=== PATIENT | female | born 1970 | race Caucasian/White ===

== ENCOUNTER → 2019-12-19 08:59 | Outpatient (CLI) | payer OTHER, SELFPAY ==
--- NOTE | ~2019-12-19 | MR_ITS ---
EXAMINATION: MR knee RT wo con DATE: 12/19/2019 10:09 INDICATION: Right knee pain TECHNIQUE: Magnetic resonance imaging (MRI) of the right knee was performed without intravenous contr ast. Sequences included coronal PD-weighted FSE, coronal PD-weighted FS FSE, sagittal T2-weighted FS E, sagittal PD-weighted FS FSE and axial PD weighted fat saturated FSE. COMPARISON: None. FINDINGS: Medial compartment: There is mild medial extrusion of the medial meniscal body without a discrete meniscal tear. Partial- thickness cartilage loss with smooth chondral surface along the medial two thirds of the medial tibia l plateau. There is mild subarticular edema along the posterior medial rim of the medial tibial plate au. Additional partial thickness cartilage loss with irregular chondral surface with superimposed ana p fissuring but without degenerative subchondral changes at the anterior to central weightbearing med ial femoral condyle. Small marginal osteophytes are present. Lateral compartment: There is a longitudinal tear extending obliquely to contact the inferior articular surface of the pos terior horn of the lateral meniscus. Increased intrasubstance signal at the lateral meniscal body whi ch does not unambiguously contact the articular surface which is equivocal for mucoid degeneration ve rsus anterior extension of the tear at the posterior horn. Partial-thickness cartilage loss with doe dral surface irregularity along both the lateral tibial plateau and along the weightbearing lateral f emoral condyle. There is a tiny central subchondral osteophyte at the posterior weightbearing lateral femoral condyle. Patellofemoral compartment: Diffuse partial thickness patellar cartilage loss most severe along the medial side of the lateral fa cet and at the apical ridge where it involves greater than 50% of the cartilage thickness. Partial-th ickness chondral ulceration and fissuring without degenerative subchondral changes at the medial and lateral trochlear and intervening trochlear groove. Small marginal osteophytes are present. Ligaments and tendons: Anterior and posterior cruciate ligaments are normal. The medial collateral ligament and fibular hermelinda ateral ligament complex are normal. The extensor mechanism is normal. The visualized medial and later al hamstring tendons as well as the iliotibial band are normal. Fluid: Small right knee joint effusion at the suprapatellar pouch. Scattered mild subcutaneous edema most pr ominent anterior to the patella and patellar tendon without discrete prepatellar bursal fluid collect ion. 17 x 12 x 9 mm osteochondral body at the posterior recess along the posterior margin of the post erior cruciate ligament. Osseous/other: Normal marrow signal. No fracture or pathologic marrow replacing process. IMPRESSION: 1. Longitudinal tear at the posterior horn of the lateral meniscus which may extend into the meniscal body. 2. Tricompartmental osteoarthritis, moderate severity at the medial compartment and mild in the later al and patellofemoral compartments with moderate to high-grade chondromalacia in all 3 compartments. 3. Likely reactive small right knee joint effusion. Reviewed, dictated and finalized at location A. IMPRESSION: 1. Longitudinal tear at the posterior horn of the lateral meniscus which may ex tend into the meniscal body. 2. Tricompartmental osteoarthritis, moderate severity at the medial compartment and mild in the lateral and patellofemoral compartments with moderate to high- grade chondromalacia in all 3 compartments. 3. Likely reactive small right knee joint effusion.
--- NOTE | ~2019-12-19 | MR_ITS ---
EXAMINATION: MR lumbar spine wo con EXAM DATE: 12/19/2019 10:14 INDICATION: Low back pain. Generalized right knee pain. TECHNIQUE: Multi-sequential, multiplanar MR images of the lumbar spine were obtained without contrast . Sagittal T1, T2, T2 fat saturation images. Axial T2 weighted images. Comparison is made to prior examination from 11/08/2018. FINDINGS: There is moderate disc disease at L4-5, mild to moderate at L3-4 and L5-S1. There is 2 mm a nterolisthesis L4 on L5, 2 mm retrolisthesis L5 on S1. The conus medullaris terminates at the L1/2 le jose miguel and has normal signal intensity and morphology. There are some degenerative endplate signal braden es L3-S1. There are no suspicious focal vertebral signal abnormalities identified. Mild lumbar levos coliosis. Level by level evaluation: T12-L1: Disc does not extend beyond the endplate margin. Facet arthropathy: Mild. Neural foraminal stenosis: No stenosis. Central canal stenosis: No stenosis. L1-L2: Disc does not extend beyond the endplate margin. Facet arthropathy: Mild. Neural foraminal stenosis: No stenosis. Central canal stenosis: No stenosis. L2-L3: There is a minimal diffuse disc bulge. Facet arthropathy: Mild. Neural foraminal stenosis: Mild right. Central canal stenosis: No stenosis. L3-L4: There is a mild diffuse disc bulge. Facet arthropathy: Severe. Neural foraminal stenosis: Mild right, mild to moderate left. Central canal stenosis: Mild to moderate. L4-L5: There is a mild to moderate diffuse disc bulge. Facet arthropathy: Moderate. Neural foraminal stenosis: Mild to moderate right, mild left. Central canal stenosis: Mild to moderate. L5-S1: There is a moderate diffuse disc bulge. Facet arthropathy: Mild to moderate. Neural foraminal stenosis: Moderate bilateral. Central canal stenosis: Mild to moderate. Compared to last year, difficult to appreciate any significant interval change. IMPRESSION: 1. Moderate lower lumbar spondylosis. Reviewed, dictated and finalized at location G.
== END ==
PROVIDERS: PCP Internal Medicine; Visit Provider Nurse Practitioner Family
DX: M54.17 Radiculopathy, lumbosacral region (principal); M54.6 Pain in thoracic spine; M25.561 Pain in right knee; M47.816 Spondylosis without myelopathy or radiculopathy, lumbar region; S83.281A Other tear of lateral meniscus, current injury, right knee, initial encounter; M17.11 Unilateral primary osteoarthritis, right knee; M94.261 Chondromalacia, right knee; M25.461 Effusion, right knee
CPT/HCPCS: 72148; 73721

== ENCOUNTER → 2020-10-21 10:44 | Outpatient (CLI) | payer OTHER, SELFPAY ==
--- NOTE | ~2020-10-21 | XR_ITS ---
EXAMINATION: XR sacroiliac joints min 3V EXAM DATE: 10/21/2020 11:09 INDICATION: Sacrococcygeal disorders, not elsewhere classified. Pt c/o left sided posterior pain, oc casionally radiates down left leg x several years, no trauma. TECHNIQUE: Frontal, bilateral oblique projections of the sacroiliac joints. There is no prior study for comparison. FINDINGS: Evidence of moderate disc disease L4-5 and L5-S1. There is mild symmetric bilateral sacroi liac and hip joint primary osteoarthritis. Sacrum, sacroiliac joints, sacral arcuate lines are intact . The soft tissue is unremarkable. IMPRESSION: 1. Moderate lower lumbar spondylosis. 2. Mild hip, sacroiliac osteoarthritis. Reviewed, dictated and finalized at location A.
== END ==
PROVIDERS: PCP Internal Medicine; Visit Provider Nurse Practitioner Family
DX: M53.3 Sacrococcygeal disorders, not elsewhere classified (principal); M47.816 Spondylosis without myelopathy or radiculopathy, lumbar region; M16.0 Bilateral primary osteoarthritis of hip; M47.898 Other spondylosis, sacral and sacrococcygeal region
CPT/HCPCS: 72202

== ENCOUNTER 2021-05-19 01:31 | Day surgery (SDC) | payer OTHER, SELFPAY ==
[2021-05-05 13:28] VITALS: BMI 52.1
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
[2021-05-19 06:42] VITALS: BP 172/70; PULSE 61; RESP 17; TEMP 36.6; O2SAT 97; BMI 51.5
[2021-05-19] MEDS: LACTATED RINGERS 1,000 ML 150 ML IV CONT (07:00)
[2021-05-19 07:10] LABS: Glucose Point of Care 127 mg/dl (65-105)
--- NOTE | 2021-05-19 07:20 | PM.HPGS ---
History of Present Illness History of Present Illness Consent: Risks, benefits, and alternatives have been discussed and questions answered. Patient agrees to proceed with procedure. Chief complaint: neoplasm screening Narrative: Marie Gonzalez is a 50 year old female here for first screening colonoscopy Review of Systems Constitutional: Constitutional: Denies headache(s) and Denies weakness Eyes: Eyes: Denies blurry vision ENT: Reports Normal hearing present, Denies headache(s) and Denies neck pain Cardiovascular: Cardiovascular: Denies chest pain and Denies dyspnea Respiratory: Respiratory: Denies dyspnea Gastrointestinal: Gastrointestinal: Reports no additional gastrointestinal complaints Genitourinary: Genitourinary: Denies dysuria Musculoskeletal: Musculoskeletal: Denies neck pain Integumentary/Breasts: Skin/Breast: Denies dry skin Neurologic: Reports Normal hearing present, Denies headache(s) and Denies weakness Psychiatric: Psychiatric: Denies anxiety Endocrine: Endocrine: Denies change in body appearance Hematologic/Lymphatic: Hematologic/Lymphatic: Denies easy bleeding Allergic/Immunologic: Allergic/Immunologic: Denies urticaria PMFSH Past Medical History Medical History (Updated 05/19/21 @ 07:20 by Jerel Uriostegui MD) Colon cancer screening Social History Social History Years smoked: 20 Smoking status: Former smoker Tobacco type: cigarettes Living arrangements: with family Spiritual care concerns: No Meds Home Medications and Allergies Home Medications Medication Instructions Recorded Confirmed Type baclofen 10 mg PO TID 05/05/21 05/19/21 History brexpiprazole [Rexulti] 1 mg PO DAILY 05/05/21 05/19/21 History bupropion HCl 150 mg PO DAILY 05/05/21 05/19/21 History bupropion HCl 300 mg PO DAILY 05/05/21 05/19/21 History carbamazepine 1,200 mg PO HS 05/05/21 05/19/21 History cetirizine 10 mg PO DAILY 05/05/21 05/19/21 History citalopram 40 mg PO DAILY 05/05/21 05/19/21 History dulaglutide [Trulicity] 1.5 mg SUBCUT WEEKLY 05/05/21 05/19/21 History ezetimibe 10 mg PO DAILY 05/05/21 05/19/21 History fenofibrate 160 mg PO DAILY 05/05/21 05/19/21 History hydroxyzine HCl 25 mg PO BID PRN 05/05/21 05/19/21 History insulin lispro protamin-lispro 70 unit SUBCUT BID 05/05/21 05/19/21 History [Humalog Mix 75-25 KwedwinPen] metoprolol succinate 25 mg PO DAILY 05/05/21 05/19/21 History omeprazole 20 mg PO DAILY 05/05/21 05/19/21 History oxybutynin chloride 10 mg PO DAILY 05/05/21 05/19/21 History oxycodone 5 mg PO BID PRN 05/05/21 05/19/21 History pravastatin 80 mg PO DAILY 05/05/21 05/19/21 History topiramate 100 mg PO DAILY 05/05/21 05/19/21 History Allergies Allergy/AdvReac Type Severity Reaction Status Date / Time adhesive tape AdvReac Rash Verified 05/19/21 06:41 Vital Signs Vital Signs - 24 hr 05/19/21 06:42 Temperature 97.9 F Pulse Rate 61 Respiratory Rate 17 Blood Pressure 172/70 H Pulse Oximetry 97 Exam Const: General: comfortable and no acute distress HENMT: General nose exam: Normal nares present Eyes: General: appearance normal, both eyes and all related structures Neck: Neck: no JVD Resp: Auscultation: clear to auscultation bilaterally Cardio: Rate: regular rate Rhythm: regular rhythm GI: Inspection: non-distended GI Palp: Yes Soft to palpation Skin: General skin exam: normal color Neuro: General: gait normal Speech: normal speech Extrem: General: normal to inspection Psych: Mental Status: mental status grossly normal Assessment and Plan Assessment and plan (1) Colon cancer screening: Code(s): Z12.11 - Encounter for screening for malignant neoplasm of colon Status: Acute Assessment and Plan: colonoscopy
--- NOTE | 2021-05-19 07:24 | P.PNAN_ITS ---
Anes - Initial Pre Proc Eval Procedure: Operation Date: 05/19/21 07:30 Proposed Procedures p Screening Colonoscopy - Jerel Uriostegui MD Date/Time: 05/19/21 07:24 Surgeon: Jerel Uriostegui MD Pre Op Diagnosis: neoplasm screening Patient Data Age: 50 Gender: F Height: 1.7 m Weight: 149.1 kg Last Vital Signs Temp 97.9 F 05/19/21 06:42 Pulse 61 05/19/21 06:42 Resp 17 05/19/21 06:42 BP 172/70 H 05/19/21 06:42 Pulse Ox 97 05/19/21 06:42 Allergies Allergy/AdvReac Type Severity Reaction Status Date / Time adhesive tape AdvReac Rash Verified 05/19/21 06:41 Home Medications Medication Instructions Recorded Confirmed Type baclofen 10 mg PO TID 05/05/21 05/19/21 History brexpiprazole [Rexulti] 1 mg PO DAILY 05/05/21 05/19/21 History bupropion HCl 150 mg PO DAILY 05/05/21 05/19/21 History bupropion HCl 300 mg PO DAILY 05/05/21 05/19/21 History carbamazepine 1,200 mg PO HS 05/05/21 05/19/21 History cetirizine 10 mg PO DAILY 05/05/21 05/19/21 History citalopram 40 mg PO DAILY 05/05/21 05/19/21 History dulaglutide [Trulicity] 1.5 mg SUBCUT WEEKLY 05/05/21 05/19/21 History ezetimibe 10 mg PO DAILY 05/05/21 05/19/21 History fenofibrate 160 mg PO DAILY 05/05/21 05/19/21 History hydroxyzine HCl 25 mg PO BID PRN 05/05/21 05/19/21 History insulin lispro protamin-lispro 70 unit SUBCUT BID 05/05/21 05/19/21 History [Humalog Mix 75-25 KwikPen] metoprolol succinate 25 mg PO DAILY 05/05/21 05/19/21 History omeprazole 20 mg PO DAILY 05/05/21 05/19/21 History oxybutynin chloride 10 mg PO DAILY 05/05/21 05/19/21 History oxycodone 5 mg PO BID PRN 05/05/21 05/19/21 History pravastatin 80 mg PO DAILY 05/05/21 05/19/21 History topiramate 100 mg PO DAILY 05/05/21 05/19/21 History Laboratory Tests 05/19/21 06:59 POC Capillary Glucose 127 mg/dl H mg/dl (65-105) Patient hx anesthesia problems: none Family hx anesthesia problems: none Results Review: All pre-operative results and documents have been reviewed as part of the pre-operative evaluation. [facility] Past Medical History Medical History (Updated 05/19/21 @ 07:20 by Jerel Uriostegui MD) Colon cancer screening Social History Social History Years smoked: 20 Smoking status: Former smoker Tobacco type: cigarettes Living arrangements: with family Spiritual care concerns: No Anes - Eval Final PreProcedure Day of Procedure 05/19/21 07:24 Patient weight: super morbidly obese Heart: regular rate and rhythm Lungs: clear to auscultation Airway: Mallampati scale class IV Neurological: alert and oriented Last oral intake: >/= 8 hours ASA classification: IV Emergent: no Anesthetic plan: proceed Anesthesia type and monitoring: general GIVS and standard monitoring Results Review: All pre-operative results and documents have been reviewed as part of the pre-operative evaluation. Informed Consent: The patient's anesthetic plan and its attendant risks and benefits were discussed with the patient/family/POA. Questions were solicited and answers provided to the satisfaction of the patient/family/POA.
[2021-05-19 07:46] VITALS: BP 130/39; PULSE 61; RESP 20; O2SAT 96
[2021-05-19 07:56] VITALS: BP 124/37; PULSE 57; RESP 23; O2SAT 97
[2021-05-19 07:59] LABS: Glucose Point of Care 140 mg/dl (65-105)
[2021-05-19 08:06] VITALS: BP 141/39; PULSE 55; RESP 22; O2SAT 96
--- NOTE | 2021-05-19 08:16 | SUR.PHASEII ---
DR WRIGHT MADE AWARE OF B/P, NO NEW ORDERS
== END 2021-05-19 08:21 | disposition home or self-care (01) ==
PROVIDERS: PCP Internal Medicine; Visit Provider Internal Medicine Gastroenterology
PROC: 0DJD8ZZ Inspection of Lower Intestinal Tract, Via Natural or Artificial Opening Endoscopic (ICD-10-PCS; CPT 45378; principal; 2021-05-19 07:30)
DX: Z12.11 Encounter for screening for malignant neoplasm of colon (principal); D12.3 Benign neoplasm of transverse colon; K64.8 Other hemorrhoids; Z79.4 Long term (current) use of insulin; Z87.891 Personal history of nicotine dependence; E66.01 Morbid (severe) obesity due to excess calories; Z68.43 Body mass index [BMI] 50.0-59.9, adult
CPT/HCPCS: 45385; 82948; 88305; J2704; J7120

== ENCOUNTER → 2021-08-13 09:27 | Outpatient (CLI) | payer OTHER, SELFPAY ==
--- NOTE | ~2021-08-13 | US_ITS ---
EXAMINATION: US right upper quadrant DATE: 08/13/2021 09:47 INDICATION: Right upper quadrant pain TECHNIQUE: Multiple grayscale and Doppler ultrasound images of the abdomen were obtained. COMPARISON: None available FINDINGS: The head and body of the pancreas are normal. The pancreatic tail is obscured by bowel gas. The liver demonstrates increased echogenicity, heterogenous echotexture, and decreased through trans mission. No surface nodularity. Normal hepatopetal flow in the main portal vein. The gallbladder is n ormal with no abnormal wall thickening, pericholecystic fluid or stones. The normal common bile duct measures 4 mm. There was no sonographic Tamayo sign. IMPRESSION: 1. Diffuse hepatic steatosis. Reviewed, dictated and finalized at location A.
== END ==
PROVIDERS: PCP Internal Medicine; Visit Provider Internal Medicine
DX: R10.11 Right upper quadrant pain (principal); K76.0 Fatty (change of) liver, not elsewhere classified
CPT/HCPCS: 76705

== ENCOUNTER → 2021-10-09 12:05 | Outpatient (CLI) | payer OTHER, SELFPAY ==
--- NOTE | ~2021-10-09 | MM_ITS ---
EXAMINATION: MM screening olivia BI w sandee HISTORY: Screening TECHNIQUE: Craniocaudal and mediolateral oblique 3-D tomosynthesis images were obtained and synthetic 2-D images were generated. CAD analysis was submitted and interpreted. COMPARISON: No prior mammogram is available for comparison at this institution. BREAST PARENCHYMAL COMPOSITION: There are scattered areas of fibroglandular density. FINDINGS: There is no evidence of suspicious mass, calcification, or architectural distortion to sugg est malignancy in either breast. There has been no suspicious interval change. IMPRESSION: 1. No mammographic evidence of malignancy. 2. Recommend routine screening mammography in one year. BI-RADS Category 1: Negative Reviewed, dictated and finalized at location A.
== END ==
PROVIDERS: PCP Internal Medicine; Visit Provider Internal Medicine
DX: Z12.31 Encounter for screening mammogram for malignant neoplasm of breast (principal)
CPT/HCPCS: 77063; 77067

== ENCOUNTER → 2022-11-17 14:12 | Outpatient (CLI) | payer OTHER, SELFPAY ==
--- NOTE | ~2022-11-17 | XR_ITS ---
EXAM: XR shoulder LT min 2V DATE: 11/17/2022 16:02 HISTORY: Pain in left shoulder . COMPARISON: None available. FINDINGS: Normal mineralization. No fracture or dislocation. No lytic or blastic lesion. Joint space s are maintained. No erosion or periosteal change. Soft tissues within normal limits. IMPRESSION: Unremarkable left shoulder radiograph findings. Reviewed, dictated and finalized at location K.
--- NOTE | ~2022-11-17 | XR_ITS ---
EXAM: XR_[id number]_CR, XR_KNEE1-2VLT_CR DATE: 11/17/2022 16:02 HISTORY: Patellofemoral disorders, right/left knee . COMPARISON: None available. FINDINGS: Normal mineralization. No fracture or dislocation. No lytic or blastic lesion. Moderate me dial and lateral joint space narrowing bilaterally. Tricompartmental osteophytosis, moderate in the b ilateral medial and lateral compartments. Spaces are maintained. No erosion or periosteal change. Sof t tissues within normal limits. IMPRESSION: Bilateral tricompartmental knee osteoarthritis, moderate in the medial and lateral compar tments. Reviewed, dictated and finalized at location K. IMPRESSION: Bilateral tricompartmental knee osteoarthritis, moderate in the med ial and lateral compartments.
--- NOTE | ~2022-11-17 | MM_ITS ---
EXAMINATION: MM screening olivia BI w sandee HISTORY: Screening TECHNIQUE: Craniocaudal and mediolateral oblique 3-D tomosynthesis images were obtained and synthetic 2-D images were generated. CAD analysis was submitted and interpreted. COMPARISON: 10/09/2021 BREAST PARENCHYMAL COMPOSITION: There are scattered areas of fibroglandular density. FINDINGS: There is no evidence of suspicious mass, calcification, or architectural distortion to sugg est malignancy in either breast. There has been no suspicious interval change. IMPRESSION: 1. No mammographic evidence of malignancy. 2. Recommend routine screening mammography in one year. BI-RADS Category 1: Negative Reviewed, dictated and finalized at location A.
== END ==
PROVIDERS: PCP Internal Medicine; Visit Provider Internal Medicine
DX: Z12.31 Encounter for screening mammogram for malignant neoplasm of breast (principal); M17.0 Bilateral primary osteoarthritis of knee; M25.512 Pain in left shoulder
CPT/HCPCS: 73030; 73560; 77063; 77067

== ENCOUNTER → 2023-03-22 13:54 | Outpatient (CLI) | payer OTHER, SELFPAY ==
--- NOTE | ~2023-03-22 | MR_ITS ---
EXAMINATION: MR shoulder LT wo con DATE: 03/22/2023 14:39 INDICATION: Left rotator cuff tendinitis TECHNIQUE: Magnetic resonance imaging (MRI) of the left shoulder was performed without intravenous co ntrast. Sequences included axial PD-weighted FS FSE, coronal oblique PD-weighted FS FSE, coronal obli que T2-weighted FS FSE, sagittal PD-weighted FS FSE, and sagittal T1-weighted SE. COMPARISON: None. FINDINGS: Coracoacromial arch: The acromion undersurface is curved in morphology (type II). The coracoacromial ligament is normal. M ild acromioclavicular osteoarthritis. Rotator cuff: Mild supraspinatus tendinopathy with small mild partial-thickness tear along the superior facet footp late of the greater tuberosity which measures approximately 3 mm AP and 5 mm medial to lateral. The t ear involves the deeper aspect of the tendon likely with at least some involvement of the articular s urface. No evident bursal surface involvement. The infraspinatus and teres minor tendons are normal. Mild subscapularis tendinopathy without tear. Normal rotator cuff muscle bulk and signal. Biceps tendon, glenoid labrum and glenohumeral cartilage: There is moderate tendinopathy without discrete tear of the intra-articular portion of the long head biceps tendon. There is a tear at the posterosuperior glenoid labrum beginning at the 12:00 position and extending posteriorly to the 10:00 position. There is deep chondral ulceration along the posterio r superior glenoid with mild subarticular cystlike changes along the posterior and posterior superior rim of the glenoid. Fluid: Physiologic amount of fluid in the glenohumeral joint and biceps tendon sheath. No loose osteochondr al bodies. Mild increased fluid signal in the subacromial/subdeltoid bursa consistent with minimal bu rsitis. Bones: No fracture or pathologic marrow replacing process. Additional mild cystic change at the greater tube rosity. There is thickening of the glenohumeral joint capsule at the axillary recess and intermediate signal intensity thickened soft tissue at the rotator cuff interval replacing the normal T1 hyperint ense fat signal. Both findings can be seen in the setting of adhesive capsulitis which is a clinical diagnosis. IMPRESSION: 1. Mild subscapularis and supraspinatus tendinopathy with small mild partial-thickness tear along the superior facet footplate of the supraspinatus tendon, potentially involving the articular surface. 2. Mild glenohumeral osteoarthritis with moderate to high-grade chondromalacia and adjacent labral te ar at the posterosuperior glenoid. 3. Moderate tendinopathy of the intra-articular long head biceps tendon without discrete tear. 4. Findings suggestive of adhesive capsulitis which is ultimately a clinical diagnosis. Reviewed, dictated and finalized at location A. R REGULATOR IMPRESSION: 1. Mild subscapularis and supraspinatus tendinopathy with small mild partial-th ickness tear along the superior facet footplate of the supraspinatus tendon, po tentially involving the articular surface. 2. Mild glenohumeral osteoarthritis with moderate to high-grade chondromalacia and adjacent labral tear at the posterosuperior glenoid. 3. Moderate tendinopathy of the intra-articular long head biceps tendon without discrete tear. 4. Findings suggestive of adhesive capsulitis which is ultimately a clinical di agnosis.
== END ==
DX: M19.012 Primary osteoarthritis, left shoulder (principal); M94.212 Chondromalacia, left shoulder; S43.432A Superior glenoid labrum lesion of left shoulder, initial encounter; M75.22 Bicipital tendinitis, left shoulder; M67.814 Other specified disorders of tendon, left shoulder
CPT/HCPCS: 73221

== ENCOUNTER → 2023-04-29 11:22 | Outpatient (CLI) | payer OTHER, SELFPAY ==
--- NOTE | ~2023-04-29 | XR_ITS ---
Left foot Technique: AP, oblique, and lateral views were obtained. Clinical History: Pain Findings: No acute fracture or dislocation is seen. Osseous alignment is anatomic. Joint spaces are p reserved without erosive or degenerative change. Soft tissues are unremarkable. Impression: Unremarkable left foot radiographs. Reviewed, dictated and finalized at location . TY ADVISOR Impression: Unremarkable left foot radiographs.
--- NOTE | ~2023-04-29 | XR_ITS ---
Right foot Technique: AP, oblique, and lateral views were obtained. Clinical History: Pain Findings: No acute fracture or dislocation is seen. Osseous alignment is anatomic. Joint spaces are p reserved without erosive or degenerative change. Soft tissues are unremarkable. Impression: Unremarkable right foot radiographs. Reviewed, dictated and finalized at location . E TV INSTALLER Impression: Unremarkable right foot radiographs.
== END ==
DX: M15.0 Primary generalized (osteo)arthritis (principal); R26.89 Other abnormalities of gait and mobility; R60.0 Localized edema
CPT/HCPCS: 73630

== ENCOUNTER 2023-11-24 10:36 | Outpatient (CLI) | payer OTHER, SELFPAY ==
--- NOTE | ~2023-11-24 | US_ITS ---
US renal BI 11/24/2023 11:26 Procedure: Realtime transabdominal ultrasound of the kidneys and bladder. Indication: Chronic kidney disease stage III Comparison: No prior studies for comparison. Findings: Renal echotexture is normal bilaterally without hydronephrosis, contour deforming mass or r enal calculus. There is a left renal cyst measuring 2.4 cm The right kidney measures 13 cm and left k idney measures 12.6 cm. Bladder within normal limits. Impression: 1: Left renal cyst measuring 2.4 cm. Reviewed, dictated and finalized at location B. Impression: 1: Left renal cyst measuring 2.4 cm.
== END 2023-11-24 10:37 ==
LOC: MICIMG 10:37
PROVIDERS: PCP Internal Medicine Nephrology; Visit Provider Internal Medicine Nephrology
DX: E11.9 Type 2 diabetes mellitus without complications (principal); N18.30 Chronic kidney disease, stage 3 unspecified; I12.9 Hypertensive chronic kidney disease with stage 1 through stage 4 chronic kidney disease, or unspecified chronic kidney disease; N28.1 Cyst of kidney, acquired
CPT/HCPCS: 76775

== ENCOUNTER 2024-12-13 06:55 | Outpatient (CLI) | payer OTHER, SELFPAY ==
--- NOTE | ~2024-12-13 | MR_ITS ---
EXAMINATION: MR shoulder LT wo con DATE: 12/13/2024 07:26 INDICATION: Left shoulder pain. TECHNIQUE: Magnetic resonance imaging (MRI) of the left shoulder was performed without intravenous contrast. Sequences included axial PD-weighted FS FSE, coronal oblique PD-weighted FS FSE and T2-weighted FS FSE, and sagittal oblique T2-weighted FS FSE and T1-weighted FSE. COMPARISON: Left shoulder MRI 03/22/2023 FINDINGS: Coracoacromial arch: The acromion undersurface is curved in morphology (type II). There is severe acromioclavicular joint osteoarthritis. There is mild subacromial/subdeltoid bursitis. Rotator cuff: There is moderate supraspinatus and infraspinatus tendinopathy. There is an articular sided partial thickness tear of anterior supraspinatus tendon measuring 3 mm anterior to posterior by 5 mm proximal to distal by 40% tendon thickness. Teres minor tendon is normal. There is moderate subscapularis tend inopathy. There is no asymmetric fatty atrophy of the rotator cuff muscle bellies. Biceps tendon and glenoid labrum: Biceps tendon is in bicipital groove. There is moderate intra-articular biceps tendinopathy. There is a tear of superior and posterior superior glenoid labrum (SLAP tear). Fluid: There is a small glenohumeral joint effusion. Bones/cartilage: There is full-thickness cartilage loss of posterior superior glenoid with subchondral cysts. There is partial-thickness cartilage loss of humeral head. Osteophytes are noted. IMPRESSION: 1. Articular-sided partial-thickness tear of anterior supraspinatus tendon. 2. Severe glenohumeral joint chondrosis. SLAP tear. 3. Severe acromioclavicular joint osteoarthritis. 4. Small glenohumeral joint effusion. 5. Moderate intra-articular biceps tendinopathy. 6. Mild subacromial/subdeltoid bursitis. Reviewed, dictated and finalized at location E.
== END 2024-12-13 06:56 | disposition home or self-care (01) ==
LOC: MICIMG 06:55
PROVIDERS: PCP Internal Medicine
DX: M67.814 Other specified disorders of tendon, left shoulder (principal); M75.112 Incomplete rotator cuff tear or rupture of left shoulder, not specified as traumatic; M19.012 Primary osteoarthritis, left shoulder; M75.52 Bursitis of left shoulder
CPT/HCPCS: 73221